=== PATIENT | male | born 1995 | race Caucasian/White ===

== ENCOUNTER 2021-08-20 18:09 | Emergency (ER) | payer SELFPAY ==
[~2021-08-20] VITALS: Ht 172.7 cm; Wt 120.0 kg
--- NOTE | 2021-08-20 18:42 | PHYS DOC ---
Past History Additional Smoking Information: 08/27 PPD Alcohol Use: None General Adult EDM: Chief Complaint: COUGH HPI: HPI: ".. I was sick yesterday pretty bad nausea and vomiting.... Coughing... Fever ... Chills... Hurt all over.... My roommate made me come in... And not puking anymore..." Patient is a 26 year old male who presents with above hx and complaints fever, chills, cough, malaise, arthralgia, myalgia, nausea, vomiting, and fatigue. Patient has had recent travel out of town to [facility] for group celebration with friends and family. 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 Has not had COVID vaccination. Has not had flu vaccination. Has not had Pneumovax. Patient does smoke. Patient denies any intake of bad food. Patient denies any specific ill contacts. Normally healthy. Does not have a primary care. Review of Systems: Review of Systems: Constitutional: Complains of fever or chills Eyes: Denies change in visual acuity HENT: Complains of nasal congestion. Complains of or sore throat Respiratory: Complains of cough. Complains of wheezing Cardiovascular: Denies chest pain or edema GI: Complains of abdominal pain, nausea, vomiting. Denies, bloody stools or diarrhea : Denies dysuria Musculoskeletal: Complains of back pain, complains of myalgia and arthralgia Integument: Denies rash Neurologic: Denies headache, focal weakness or sensory changes Endocrine: Denies polyuria or polydipsia Lymphatic: Denies swollen glands Psychiatric: Denies depression or anxiety Family History: Family History: Noncontributory presentation Current Medications: Current Meds: See nursing for home meds Allergies: Allergies: No known drug allergies Physical Exam: PE: Constitutional: Well developed, well nourished, moderate acute distress, non- toxic appearance. [] HENT: Normocephalic, atraumatic, bilateral external ears normal, oropharynx moist, injected pharynx, postnasal drainage, no oral exudates, nose swollen turbinates clear rhinorrhea Eyes: PERRLA, EOMI, conjunctiva normal, no discharge. [] Neck: Normal range of motion, no tenderness, supple, no stridor. [] Cardiovascular tachycardia rhythm, ele appears to be a sinus tachycardia. , no murmur [] Lungs & Thorax: Bilateral breath sounds equal at apex and a few scattered wheezes on auscultation [] Abdomen: Bowel sounds hyperactive, soft, no tenderness, no masses, no pulsatile masses. [] Skin: Warm, diaphoretic, no erythema, no rash. [] Back: No tenderness, no CVA tenderness. [] Extremities: No tenderness, no cyanosis, no clubbing, ROM intact, no edema. No cording appreciated Neurologic: Alert and oriented X 3, normal motor function, normal sensory function, no focal deficits noted. [] Psychologic: Affect anxious, judgement normal, mood normal. [] EKG: EKG: [] Radiology/Procedures: Radiology/Procedures: [][place] [address] IMAGING REPORT Signed PATIENT: DONNA PAREKH ACCOUNT: [id number] : 1995 LOCATION: ER AGE: 26 SEX: M EXAM STATUS: DEP ER ORD. PHYSICIAN: QUIRINO SOL MD REASON: COVID PROCEDURE: CHEST AP ONLY EXAMINATION: Chest radiograph. VIEWS: 1 COMPARISON: None INDICATION:26 years, Male, Covid 19 pneumonia. FINDINGS: Normal cardiomediastinal silhouette. Subtle bibasilar airspace opacities. No pleural effusion or pneumothorax. No acute osseous process. IMPRESSION: Subtle bibasilar airspace opacities, suspicious for multifocal pneumonia. Electronically signed by: Galo Grace MD (08/21/2021 7:09 AM) [id number] DICTATED AND SIGNED BY: GALO GRACE MD DATE: 08/21/21 0708 CC: QUIRINO SOL MD; PCP,NO ~MTH0 0 Heart Score: C/O Chest Pain: No Risk Factors: Risk Factors: DM, Current or recent (<one month) smoker, HTN, HLP, family history of CAD, obesity. Risk Scores: Score 0 - 3: 2.5% MACE over next 6 weeks - Discharge Home Score 4 - 6: 20.3% MACE over next 6 weeks - Admit for Clinical Observation Score 7 - 10: 72.7% MACE over next 6 weeks - Early Invasive Strategies Course & Med Decision Making: Course & Med Decision Making Pertinent Labs and Imaging studies reviewed. (See chart for details) Patient push fluids. Patient to take Tylenol and ibuprofen for discomfort. Patient to wear a mask covers his nose and mouth at all times any interactions with others. The patient practice Covid isolation for the next 10 days if the last 3 are asymptomatic. Patient use MDI 2 puffs 4 times a day. Patient take Zithromax 250 a day. Patient to practice incentive spirometry. If patient cannot get a set incentive spirometry to blow up a balloon every hour while awake. This activity will help reduce atelectasis. Patient to get a home sat monitor. If his saturations are persistently below 90% will need home oxygen. Encourage patient once he is over this acute illness to get the Covid vaccination. Patient encouraged to get flu vaccination went over this acute illness.. Take a daily baby aspirin. Go to a clear fluid diet if he is having active vomiting or diarrhea. No solids or milk products. For 2 days. Push fluids such as clear grape juice, apple juice, Jell-O, popsicles, sweet tea, etc. Take Tylenol and ibuprofen as needed for discomfort. Impression: 1..Viral Syndrome 2., COVID Pneumonia [] Dragon Disclaimer: Araseli Disclaimer: This electronic medical record was generated, in whole or in part, using a voice recognition dictation system. Departure Departure: Referrals: PCP,NO (PCP) Scripts Azithromycin (ZITHROMAX) 250 Mg Tablet 250 MG PO DAILY for ANTI-BIOTIC for 5 Days, #5 TAB 0 Refills Prov: QUIRINO SOL MD 08/20/21 Araseli Disclaimer This chart was dictated in whole or in part using Voice Recognition software in a busy, high-work load, and often noisy Emergency Department environment. It may contain unintended and wholly unrecognized errors or omissions. QUIRINO SOL MD Aug 20, 2021 18:42
[2021-08-20] MEDS ORDERED: IBUPROFEN 600 MG TABLET. PO ONE (19:00)
[2021-08-20] MEDS ORDERED: ONDANSETRON ODT 4 MG TAB.RAPDIS PO ONE (19:00)
[2021-08-20] MEDS ORDERED: ALBUTEROL SULFATE 8GM INHALER. INH ONE (19:15)
[2021-08-20 20:01] LABS: INFLUENZA A PATIENT NEGATIVE (NEGATIVE); INFLUENZA B PATIENT NEGATIVE (NEGATIVE)
[2021-08-20] MEDS ORDERED: AZIT250T PO (20:55)
[2021-08-20] MEDS ORDERED: AZITHROMYCIN 250 MG TABLET. PO ONE (21:00)
[2021-08-20 21:20] VITALS: BP 156/84
--- NOTE | 2021-08-21 07:11 | RAD ---
EXAMINATION: Chest radiograph. VIEWS: 1 COMPARISON: None INDICATION:26 years, Male, Covid 19 pneumonia. FINDINGS: Normal cardiomediastinal silhouette. Subtle bibasilar airspace opacities. No pleural effusion or pneu mothorax. No acute osseous process. IMPRESSION: Subtle bibasilar airspace opacities, suspicious for multifocal pneumonia. Electronically signed by: Bree Grace MD (08/21/2021 7:09 AM) [id number]
== END 2021-08-20 21:20 | disposition home or self-care (01) ==
LOC: ER 18:09
DX: U07.1 COVID-19 (principal); J12.82 Pneumonia due to coronavirus disease 2019; B34.9 Viral infection, unspecified; F17.200 Nicotine dependence, unspecified, uncomplicated
CPT/HCPCS: 71045; 87070; 87426; 87804; 87880; 94640; 99284; C9803; U0003; 94664